=== PATIENT | male | born 1990 | race Caucasian/White ===

== ENCOUNTER 2017-07-10 04:19 | Emergency (ER) | payer OTHER ==
[~2017-07-10] VITALS: Ht 185.4 cm; Wt 73.8 kg
[2017-07-10 04:17] VITALS: TEMP 36.8; Ht 185.4 cm; Wt 73.8 kg
[2017-07-10 04:51] LABS: URINE APPEARANCE CLEAR (CLEAR); URINE BILIRUBIN NEG (NEG); URINE COLOR YELLOW; URINE NITRITE NEG (NEG); URINE SPECIFIC GRAVITY 1.011 (1.000-1.030); UROBILINOGEN NEG (NEG); ZZUR CULT IF INDIC CLEAN CATCH NO
[2017-07-10 04:53] LABS: MANUAL MICROSCOPIC REQUIRED? NO; REVIEW REQ? NO
[2017-07-10 04:58] LABS: BASO % 0.9 %; BASO ABS # 0.06 K/uL (0-0.2); COMPLETE YES; EOS % 2.9 %; IG% 0.2 %; LYMPH % 38.6 %; LYMPH ABS # 2.51 K/uL (1.2-3.4); MEAN CELL VOLUME 93.3 fL (80-100); MEAN CORPUSCULAR HGB CONC 36.4 g/dl (32-36); MONO % 4.9 %; NEUT % 52.5 %; PLATELET COUNT 271 K/uL (130-400)
[2017-07-10 05:19] LABS: BENZODIAZEPINE, URINE NEG (NEG); COCAINE,URINE NEG (NEG); PHENCYCLIDINE, URINE NEG (NEG)
[2017-07-10 05:21] LABS: BUN/CREATININE RATIO 8.1 (10-20); CALCIUM 8.5 mg/dl (8.5-10.1); CREATININE 0.92 mg/dl (0.60-1.40); POTASSIUM 3.9 mmol/L (3.5-5.1)
[2017-07-10 05:31] LABS: ALB/GLOB RATIO 1.2 (0.9-2); THYROID STIMULATING HORMONE 0.405 uIu/ml (0.300-4.500)
[2017-07-10 05:36] LABS: ACETAMINOPHEN < 2 ug/ml (10-30)
--- NOTE | 2017-07-10 06:59 | EMERGENCY ROOM VISIT NOTE ---
History First contact with patient: 05:56 Chief Complaint: MENTAL HEALTH EVALUATION History of Present Illness The patient is a 27 year old male who presents to the Emergency Room under a 302 by police. The patient was apparently driving under the influence last evening and was pulled over by police. During his discussions with the learning officer, he threatened to harm himself. Currently the patient is not willing to "talk." He is minimally interactive however he is awake. He recurrently covers his face with his blanket. When asked if he will give any information, he says "nope, sorry." Review of Systems See HPI for pertinent positives & negatives. A total of 10 systems reviewed and were otherwise negative. Past Medical/Surgical History Unwilling to discuss Social History Smoking Status: Current Every Day Smoker Alcohol Use: heavy Marital Status: single Housing Status: lives alone Occupation Status: other (unknown) Current/Historical Medications No Active Prescriptions or Reported Meds Physical Exam Vital Signs Date Time Temp Pulse Resp B/P (MAP) Pulse Ox O2 Delivery O2 Flow Rate FiO2 07/10/17 13:57 88 15 117/77 98 Room Air 07/10/17 08:54 116 18 105/55 97 Room Air 07/10/17 04:17 36.8 97 18 138/85 98 Room Air Physical Exam Vital signs reviewed. General: Well-appearing 27 yo male, in no significant distress. Smells of alcohol. HEENT: No scleral icterus, PERRLA, neck supple. Atraumatic. Cardiovascular: Regular rate and rhythm, no extra sounds. Pulmonary: Clear to auscultation bilaterally, normal work of breathing. Abdomen: Soft, nontender, nondistended, positive bowel sounds. Musculoskeletal: Atraumatic, no peripheral edema. Neurologic: Patient awake alert and oriented x 3, full strength in all 4 extremities. Cranial nerves 2 through 12 grossly intact. Psychiatric: Unwilling to discuss at this time. Skin: Warm, dry, no rash Medical Decision & Procedures Laboratory Results 07/10/17 04:39 Red Blood Count 4.50, Mean Corpuscular Volume 93.3, Mean Corpuscular Hemoglobin 34.0, Mean Corpuscular Hemoglobin Concent 36.4, Mean Platelet Volume 9.0, Neutrophils (%) (Auto) 52.5, Lymphocytes (%) (Auto) 38.6, Monocytes (%) (Auto) 4.9, Eosinophils (%) (Auto) 2.9, Basophils (%) (Auto) 0.9, Neutrophils # (Auto) 3.41, Lymphocytes # (Auto) 2.51, Monocytes # (Auto) 0.32, Eosinophils # (Auto) 0.19, Basophils # (Auto) 0.06 07/10/17 04:39 Test 07/10/17 04:31 07/10/17 04:39 Urine Color YELLOW Urine Appearance CLEAR (CLEAR) Urine pH 6.0 (4.5-7.5) Urine Specific [place] 1.011 (1.000-1.030) Urine Protein NEG (NEG) Urine Glucose (UA) NEG (NEG) Urine Ketones NEG (NEG) Urine Occult Blood NEG (NEG) Urine Nitrite NEG (NEG) Urine Bilirubin NEG (NEG) Urine Urobilinogen NEG (NEG) Urine Leukocyte Esterase NEG (NEG) Urine Opiates Screen NEG (NEG) Urine Methadone, Qualitative NEG (NEG) Urine Barbiturates NEG (NEG) Urine Phencyclidine (PCP) Level NEG (NEG) Ur Amphetamine/Methamphetamine NEG (NEG) MDMA (Ecstasy) Screen NEG (NEG) Urine Benzodiazepines Screen NEG (NEG) Urine Cocaine Metabolite NEG (NEG) Urine Marijuana (THC) NEG (NEG) White Blood Count 6.50 K/uL (4.8-10.8) Red Blood Count 4.50 M/uL (4.7-6.1) Hemoglobin 15.3 g/dL (14.0-18.0) Hematocrit 42.0 % (42-52) Mean Corpuscular Volume 93.3 fL (80-100) Mean Corpuscular Hemoglobin 34.0 pg (25-34) Mean Corpuscular Hemoglobin Concent 36.4 g/dl (32-36) Platelet Count 271 K/uL (130-400) Mean Platelet Volume 9.0 fL (7.4-10.4) Neutrophils (%) (Auto) 52.5 % Lymphocytes (%) (Auto) 38.6 % Monocytes (%) (Auto) 4.9 % Eosinophils (%) (Auto) 2.9 % Basophils (%) (Auto) 0.9 % Neutrophils # (Auto) 3.41 K/uL (1.4-6.5) Lymphocytes # (Auto) 2.51 K/uL (1.2-3.4) Monocytes # (Auto) 0.32 K/uL (0.11-0.59) Eosinophils # (Auto) 0.19 K/uL (0-0.5) Basophils # (Auto) 0.06 K/uL (0-0.2) RDW Standard Deviation 39.7 fL (36.4-46.3) RDW Coefficient of Variation 11.7 % (11.5-14.5) Immature Granulocyte % (Auto) 0.2 % Immature Granulocyte # (Auto) 0.01 K/uL (0.00-0.02) Anion Gap 7.0 mmol/L (3-11) Est Creatinine Clear Calc Drug Dose 123.7 ml/min Estimated GFR () 129.8 Estimated GFR (Non- 112.0 BUN/Creatinine Ratio 8.1 (10-20) Calcium Level 8.5 mg/dl (8.5-10.1) Total Bilirubin 0.3 mg/dl (0.2-1) Aspartate Amino Transf (AST/SGOT) 16 U/L (15-37) Alanine Aminotransferase (ALT/SGPT) 19 U/L (12-78) Alkaline Phosphatase 56 U/L (45-117) Total Protein 7.5 gm/dl (6.4-8.2) Albumin 4.1 gm/dl (3.4-5.0) Globulin 3.4 gm/dl (2.5-4.0) Albumin/Globulin Ratio 1.2 (0.9-2) Thyroid Stimulating Hormone (TSH) 0.405 uIu/ml (0.300-4.500) Salicylates Level 2.3 mg/dl (2.8-20) Acetaminophen Level < 2 ug/ml (10-30) Ethyl Alcohol mg/dL 219.0 mg/dl (0-3) ED Course Differential diagnosis: Etiologies such as mood disorder, infection, hypoglycemia, electrolyte abnormalities, cardiac sources, intracerebral event, toxicologic, neurologic, as well as others were entertained. Medical Decision This patient was evaluated and appeared to be in no significant distress. The patient has no signs of trauma on exam. He is intoxicated by blood alcohol content of 219 at 4:30 AM. Patient will be observed in the emergency department until he reaches a more sober state. A 302 has been submitted by the police. After the patient reached a sober state, he was evaluated by the mental health case specialist. The patient has said multiple times that he has suicidal thoughts frequently. He has thought of many plans including shooting himself. The patient states he is voluntary at this time. He has asked multiple times to go home. I did explain to the patient that he will need inpatient treatment. He understands that there is a 302 petitioning statement. A bed search is currently underway. The patient is been signed out to Dr. May at the change of shift. Please see his notes for final disposition. Impression Primary Impression: Alcohol intoxication Additional Impression: Suicidal behavior Departure Information Prescriptions No Active Prescriptions or Reported Meds Patient Instructions My [facility] Problem Qualifiers
[2017-07-10] MEDS ORDERED: LORAZEPAM 1 MG TAB SL STA ×2 (16:34→23:30)
--- NOTE | 2017-07-10 22:19 | EMERGENCY ROOM VISIT NOTE ---
ED Visit Note First contact with patient: 16:34 This patient was signed out to me by Dr. Miles at change of shift. The patient is medically cleared and awaiting bed placement for suicidal ideation. He was anxious and was given Ativan 1 mg sublingually. He was signed out to Dr. Reyes at change of shift.
--- NOTE | 2017-07-11 08:59 | EMERGENCY ROOM VISIT NOTE ---
ED Visit Note First contact with patient: 08:58 Patient signed out to me by Dr. May. No issues reported to me by nursing staff overnight. Patient awaiting placement at this time. Signed out to Dr. Christie.
[2017-07-11] MEDS ORDERED: LORAZEPAM 1 MG TAB SL STA (10:31)
[2017-07-11 11:59] VITALS: BP 113/65; PULSE 80; O2SAT 99
--- NOTE | 2017-07-11 16:17 | EMERGENCY ROOM VISIT NOTE ---
ED Visit Note First contact with patient: 09:30 27 yr old male arrived yesterday, initial evaluated by Dr Miles, then Dr May, then Dr Reyes who signed patient out to me awaiting mental health placement. Initially was 302 warrant by Police but he is cooperative, agreeable and wishes for 201 admission. He was accepted to the [facility]. I discussed the case with him and have signed 201. Given he is willing to go inpatient and work with use I felt that declining 302 on basis of plan for 201 is reasonable at this time. He was given dose ativan for anxiety. Transferred to [place] for further treatment/evaluation.
[2017-07-16 15:34] LABS: SYNTHETIC CANNABINOIDS QL URIN NEGATIVE (Negative)
== END 2017-07-11 12:05 ==
LOC: EDBD 04:19 → C.EDA 04:21
DX: F10.120 Alcohol abuse with intoxication, uncomplicated (principal); Y90.7 Blood alcohol level of 200-239 mg/100 ml; R45.851 Suicidal ideations; F41.9 Anxiety disorder, unspecified; F17.200 Nicotine dependence, unspecified, uncomplicated

== ENCOUNTER → 2017-07-10 | Outpatient (CLI) | payer OTHER | END | disposition home or self-care (01) | LOC: C.LAB 04:36 | DX: Z02.83 Encounter for blood-alcohol and blood-drug test (principal) ==